=== PATIENT | female | born 1970 | race Caucasian/White ===

== ENCOUNTER 2016-07-10 17:47 | Observation (INO) | payer OTHER ==
[2016-07-10] MEDS ORDERED: LIDOCAINE 2% VISCOUS 15 ML UDCUP PO ONE (18:21)
[2016-07-10] MEDS ORDERED: MAG HYDROX/AL HYDROX/SIMETH 30 ML UDCUP PO ONE (18:21)
[2016-07-10] MEDS ORDERED: NS 500 ML IV ONE (18:21)
[2016-07-10] MEDS ORDERED: HYOSCYAMINE SULFATE 0.125 MG TAB PO ONE (18:21)
[2016-07-10] MEDS ORDERED: ASPIRIN 81 MG CHEWABLE TAB PO ONE (18:21)
--- NOTE | 2016-07-10 18:30 | CPEKG ---
Heart Rate: 63 RR Interval: 952 P-R Interval: 168 QRSD Interval: 78 QT Interval: 408 QTC Interval: 418 P Plato: 37 QRS Plato: 42 T Wave Plato: 42 EKG Severity - NORMAL ECG - EKG Impression: SINUS RHYTHM Electronically Signed By: Alessandra Noriega 10-Jul-2016 22:57:50
--- NOTE | 2016-07-10 18:35 | EDPHY ---
H & P Time Seen by Provider: 07/10/16 18:02 HPI/ROS: CHIEF COMPLAINT: Epigastric pain HISTORY OF PRESENT ILLNESS: Patient is a 46-year-old female with a history of GERD who presents to the emergency department epigastric pain. Pain started around 2:00 p.m.. She felt as though she had "ingestion." She felt a burning sensation. The pain then started to radiate to her back. Her pain was moderate but is now improved. She has no epigastric pain currently but does describe her back in knots. No cough. Pain is mildly worse with deep breath. No fever or chills. No leg pain or swelling. REVIEW OF SYSTEMS: My complete review of systems is negative except as mentioned in the HPI. Past Medical/Surgical History: Includes GERD, hypothyroidism, severe environmental allergies Smoking Status: Never smoked Physical Exam: 36.7, 60, 18, 98% on room air GENERAL: Well-appearing, in no acute distress, alert. HEENT: Eyes normal to inspection, normal pharynx, no signs of dehydration. NECK: No thyromegaly, no lymphadenopathy, supple. RESPIRATORY: Clear to auscultation bilaterally, no rales, rhonchi or wheezing. CVS: Regular rate and rhythm, no rubs, murmurs, or gallops. No chest wall tenderness palpation. ABDOMEN: Soft, epigastric tenderness to palpation with no rebound or guarding, nondistended, no organomegaly. BACK: Normal to inspection, no CVA tenderness. SKIN: Normal color, no rash, warm, dry. No pallor. EXTREMITIES: No pedal edema, no calf tenderness, no Homans sign or cords, no joint swelling. NEURO/PSYCH: Alert and oriented x3, normal mood and affect, normal motor sensory exam. Constitutional: Initial Vital Signs Temperature (C) 36.7 C 07/10/16 17:50 Heart Rate 68 07/10/16 17:50 Respiratory Rate 18 07/10/16 17:50 O2 Sat (%) 98 07/10/16 17:50 O2 Delivery Mode Room Air Allergies/Adverse Reactions: Latex, Natural Rubber Allergy (Verified 07/10/16 17:48) avocado Allergy (Uncoded 05/06/13 20:41) banana Allergy (Uncoded 05/06/13 20:42) celery Allergy (Uncoded 05/06/13 20:41) melon Allergy (Uncoded 05/06/13 20:40) Home Medications: Medication Instructions Recorded Levothyroxine [Synthroid 50 mcg 50 mcg PO DAILY06 05/06/13 (RX)] CIMETIDINE [Tagamet Hb] 200 mg PO 07/10/16 Cetirizine [ZyrTEC 10 mg (*)] 10 mg PO DAILY 07/10/16 Medical Decision Making - Diagnostics Imaging Results: Imaging Impressions Chest X-Ray 07/10/16 18:26 Impression: 1. No pneumothorax or pneumomediastinum. 2. No pneumoperitoneum. 3. Minimal linear scarring or atelectasis in the left lower lobe, without definite pneumonia. Chest/Thorax CTA 07/10/16 19:31 Impression: 1. No definite pulmonary thromboemboli. 2. No aortic aneurysm or dissection. 3. Small hiatal hernia. 4. Cholelithiasis, with possible pericholecystic fluid. 5. Scarring in the lingula, without acute pneumonia, pleural effusion, or pneumothorax. Findings and recommendations discussed with Emergency Department physician, Alessandra Noriega M.D., at 2044 hours, on July 10, 2016. Final report concurs with initial preliminary interpretation. Abdomen Ultrasound 07/10/16 20:41 Impression: 1. Cholelithiasis with circumferential wall thickening consistent with cholecystitis. 2. No biliary ductal dilation or pericholecystic fluid. Findings and recommendations discussed with Emergency Department physician, ALESSANDRA NORIEGA at 21:39 hour, 07/10/2016. Final report concurs with initial preliminary interpretation. ED Course/Re-evaluation: In the emergency department I discussed possible etiologies with the patient. I answered all her questions. IV was placed. Laboratory studies, ekg and CXR were ordered. Patient was given a GI cocktail and aspirin. EKG shows normal sinus rhythm, normal rate, normal axis, normal intervals. There are no ST or T-wave abnormalities. EKG is normal as interpreted by me. Patient's chemistry and CBC were normal. Troponin was negative. D-dimer was elevated at 0.72. Patient states her symptoms felt better after receiving the GI cocktail. She was given Pepcid 20 mg IV. The patient was given Toradol 30 mg IV. I discussed the results with the patient. I answered all of her questions. A CT angiogram was ordered. CT angiogram: Please refer the dictated report by the radiologist. No pulmonary embolus or pulmonary pathology. There is potential fluid around the gallbladder. Dr. Brush recommended we order an ultrasound. I discussed the results with the patient. I answered all her questions. Ultrasound was ordered. I discussed the results with the patient. I answered all her questions. She was given warnings prior to leaving. She will return with worsening symptoms. Ultrasound: Please refer the dictated report by Dr. Kaden Brush. The patient has multiple gallstones and findings consistent with cholecystitis. Common bile duct is 4. I discussed the result with the patient. I answered all her questions. Dr. Luis Mcelroy was paged. 12 10: I discussed the case with Dr. Mcelroy. He will come to department to evaluate the patient. I discussed the plan with the patient. Dr. Mcelroy is in the emergency department evaluating the patient. Patient is deciding if she prefer to be admitted for surgery or follow up with Dr. Mcelroy as an outpatient. Differential Diagnosis: My differential includes but is not limited to GERD, pancreatitis, cholecystitis , cholangitis, ACS, acute [place], pericarditis, myocarditis, dissection, aneurysm, pulmonary embolus - Data Points Laboratory Results: Laboratory Results 07/10/16 18:26 07/10/16 18:26 07/10/16 07/10/16 07/10/16 18:26 18:26 18:26 WBC RBC Hgb Hct MCV MCH MCHC RDW Plt Count MPV Neut % (Auto) Lymph % (Auto) [place] % (Auto) Eos % (Auto) Baso % (Auto) Nucleat RBC Rel Count Absolute Neuts (auto) Absolute Lymphs (auto) Absolute Monos (auto) Absolute Eos (auto) Absolute Basos (auto) Absolute Nucleated RBC Immature Gran % Immature Gran # D-Dimer 0.72 ug/mLFEU H ug/mLFEU (0.00-0.50) Sodium 136 mEq/L mEq/L (134-144) Potassium 4.1 mEq/L mEq/L (3.5-5.2) Chloride 102 mEq/L mEq/L (97-110) Carbon Dioxide 24 mEq/l mEq/l (22-31) Anion Gap 10 mEq/L mEq/L (8-16) BUN 13 mg/dL mg/dL (7-23) Creatinine 0.8 mg/dL mg/dL (0.6-1.0) Estimated GFR > 60 Glucose 107 mg/dL H mg/dL (70-100) Calcium 9.4 mg/dL mg/dL (8.5-10.4) Total Bilirubin 0.4 mg/dL mg/dL (0.1-1.4) Conjugated Bilirubin 0.2 mg/dL mg/dL (0.0-0.5) Unconjugated Bilirubin 0.2 mg/dL mg/dL (0.0-1.1) AST 17 IU/L IU/L (14-46) ALT 28 IU/L IU/L (9-52) Alkaline Phosphatase 46 IU/L IU/L (38-126) Troponin I < 0.012 ng/mL ng/mL (0-0.034) Total Protein 7.4 g/dL g/dL (6.3-8.2) Albumin 4.0 g/dL g/dL (3.5-5.0) Lipase 113.0 IU/L IU/L (23-300) Beta HCG, Qual NEGATIVE 07/10/16 18:26 WBC 8.89 10^3/uL 10^3/uL (3.80-9.50) RBC 4.70 10^6/uL 10^6/uL (4.18-5.33) Hgb 13.7 g/dL g/dL (12.6-16.3) Hct 41.0 % % (38.0-47.0) MCV 87.2 fL fL (81.5-99.8) MCH 29.1 pg pg (27.9-34.1) MCHC 33.4 g/dL g/dL (32.4-36.7) RDW 13.2 % % (11.5-15.2) Plt Count 286 10^3/uL 10^3/uL (150-400) MPV 10.2 fL fL (8.7-11.7) Neut % (Auto) 64.3 % % (39.3-74.2) Lymph % (Auto) 26.8 % % (15.0-45.0) [place] % (Auto) 6.4 % % (4.5-13.0) Eos % (Auto) 1.8 % % (0.6-7.6) Baso % (Auto) 0.4 % % (0.3-1.7) Nucleat RBC Rel Count 0.0 % % (0.0-0.2) Absolute Neuts (auto) 5.71 10^3/uL 10^3/uL (1.70-6.50) Absolute Lymphs (auto) 2.38 10^3/uL 10^3/uL (1.00-3.00) Absolute Monos (auto) 0.57 10^3/uL 10^3/uL (0.30-0.80) Absolute Eos (auto) 0.16 10^3/uL 10^3/uL (0.03-0.40) Absolute Basos (auto) 0.04 10^3/uL 10^3/uL (0.02-0.10) Absolute Nucleated RBC 0.00 10^3/uL 10^3/uL (0-0.01) Immature Gran % 0.3 % % (0.0-1.1) Immature Gran # 0.03 10^3/uL 10^3/uL (0.00-0.10) D-Dimer Sodium Potassium Chloride Carbon Dioxide Anion Gap BUN Creatinine Estimated GFR Glucose Calcium Total Bilirubin Conjugated Bilirubin Unconjugated Bilirubin AST ALT Alkaline Phosphatase Troponin I Total Protein Albumin Lipase Beta HCG, Qual Medications Given: Discontinued Medications Al Hydroxide/Mg Hydroxide (Maalox Susp) 30 ml PO ONCE ONE Stop: 07/10/16 18:22 Last Admin: 07/10/16 18:33 Dose: 30 ml Aspirin (Aspirin) 324 mg PO EDNOW ONE Stop: 07/10/16 18:22 Last Admin: 07/10/16 18:32 Dose: 324 mg Famotidine (Pepcid) 20 mg IVP EDNOW ONE Stop: 07/10/16 19:46 Last Admin: 07/10/16 20:00 Dose: 20 mg Hyoscyamine Sulfate (Levsin, Hyomax-Sl) 0.25 mg PO ONCE ONE Stop: 07/10/16 18:22 Last Admin: 07/10/16 18:33 Dose: 0.25 mg Sodium Chloride (Ns) 500 mls @ 0 mls/hr IV ONCE ONE PRN Reason: As Directed Stop: 07/10/16 18:22 Last Admin: 07/10/16 18:39 Dose: 500 mls Ketorolac Tromethamine (Toradol) 30 mg IVP EDNOW ONE Stop: 07/10/16 19:46 Last Admin: 07/10/16 20:00 Dose: 30 mg Lidocaine (Lidocaine 2% Viscous) 15 ml PO ONCE ONE Stop: 07/10/16 18:22 Last Admin: 07/10/16 18:33 Dose: 15 ml Departure - Departure Disposition: Home, Routine, Self-Care Clinical Impression: Epigastric pain Condition: Good Instructions: Chest Pain (ED), Epigastric Pain (ED) Additional Instructions: Return with increasing pain, fever, vomiting, or any other concerns. Referrals: Rashmi Peña MD [Primary Care Provider] - 1-2 days without fail Luis Mcelroy MD [Medical Doctor] - As per Instructions
[2016-07-10 18:41] LABS: % IMMATURE GRANULYOCYTES 0.3 % (0.0-1.1); ABSOLUTE IMMATURE GRANULOCYTES 0.03 10^3/uL (0.00-0.10); ADD DIFF? NO; ADD MORPH? NO; ADD SCAN? NO; ATYPICAL LYMPHOCYTE FLAG 0 (0-99); FRAGMENT RBC FLAG 0 (0-99); HEMOGLOBIN 13.7 g/dL (12.6-16.3); LEFT SHIFT FLG 0 (0-99); LIPEMIA HEMOLYSIS FLAG 80 (0-99); MEAN CELL HEMOGLOBIN 29.1 pg (27.9-34.1); MEAN CELL HEMOGLOBIN CONCENTR. 33.4 g/dL (32.4-36.7); MEAN CELL VOLUME 87.2 fL (81.5-99.8); MEAN PLATELET VOLUME 10.2 fL (8.7-11.7); PLATELET CLUMPS FLAG 0 (0-99); PLATELET COUNT 286 10^3/uL (150-400); RED CELL DISTRIBUTION WIDTH 13.2 % (11.5-15.2)
[2016-07-10 18:56] LABS: ALANINE AMINOTRANSFERASE 28 IU/L (9-52); ALKALINE PHOSPHATASE 46 IU/L (38-126); ANION GAP 10 mEq/L (8-16); ASPARTATE AMINOTRANSFERASE 17 IU/L (14-46); BILIRUBIN,TOTAL 0.4 mg/dL (0.1-1.4); BILIRUBIN-CONJUGATED 0.2 mg/dL (0.0-0.5); BILIRUBIN-UNCONJUGATED 0.2 mg/dL (0.0-1.1); CALCIUM 9.4 mg/dL (8.5-10.4); CARBON DIOXIDE 24 mEq/l (22-31); CHLORIDE 102 mEq/L (97-110); CREATININE 0.8 mg/dL (0.6-1.0); GLOMERULAR FILTRATION RATE > 60; GLUCOSE 107 mg/dL (70-100); POTASSIUM 4.1 mEq/L (3.5-5.2); SODIUM 136 mEq/L (134-144); TOTAL PROTEIN 7.4 g/dL (6.3-8.2)
[2016-07-10 19:06] LABS: TROPONIN I < 0.012 ng/mL (0-0.034)
[2016-07-10] MEDS ORDERED: IOPAMIDOL (ISOVUE 370) 100 ML BTL IV ONE (19:37)
[2016-07-10] MEDS ORDERED: KETOROLAC 30 MG/1 ML SDV IVP ONE (19:45)
[2016-07-10] MEDS ORDERED: FAMOTIDINE 20 MG/2 ML SDV IVP ONE ×3 (19:45→23:41)
--- NOTE | 2016-07-10 23:17 | PDCONSULT ---
Child And Family Services Worker Note: CC: Abd Pain HPI: 46 y/o female with acute onset epigastric pain presented to Urgent Care and was referred to the ED for evaluation for an elevated d-dimer. A CTA was performed which showed no PE/she was seen to have Ca++ gallstones and an ultrasound confirmed this. She continued to have pain and surgical consultation was requested. She had a vegetarian burrito for lunch. PMH: hypothyroidism, GERD allergies: Latex, multiple fruits/vegetable allergies meds: Synthroid, OCP non-smoker SH: with 2 children/here with neighbor and older daughter ( had lap rohan 3 weeks ago) FH: father with gallstones ROS: + prior abd pain, hx GERD PE: BP 154/88 P 76 T36.7 WDWN female in NAD - icterus/adenopath lungs clear CVS RRR w/out murmurs Abd: soft/tender RUQ with guarding no HSM, mass/small umbilical hernia ext: w/out edema CT/ultrasound reviewed with patient: multiple large stones/normal CBD LFT's wnl Imp: 1. Cholelithiasis with early cholecystitis/cystic duct obstruction and persistant pain/tenderness >8 hours 2. hypothyroid 3. hx GERD 4. Latex allergy Rec: we discussed options including immediate lap rohan vs. delayed surgery. She is comfortable with proceeding and we discussed surgery, expected recovery and risks. Informed consent was obtained. Pre-op prophylactic antibiotics Lee Ann Mcelroy MD, FACS
[2016-07-10] MEDS ORDERED: LR 1,000 ML IV SCH ×2 (23:30→23:45)
[2016-07-10] MEDS ORDERED: ceFAZolin 2 GM/DEXTROSE 100 ML IV ONE (23:31)
[2016-07-11] MEDS ORDERED: BUPIVACAINE 0.25% 30 ML SDV ONE (00:02)
[2016-07-11] MEDS ORDERED: KETOROLAC 30 MG/1 ML SDV ONE (00:04)
[2016-07-11] MEDS ORDERED: ONDANSETRON 4 MG/2 ML VIAL ONE ×2 (00:04→01:38)
[2016-07-11] MEDS ORDERED: DEXAMETHASONE 4 MG/ML VIAL ONE (00:04)
[2016-07-11] MEDS ORDERED: ROCURONIUM 50 MG/5 ML VIAL ONE (00:04)
[2016-07-11] MEDS ORDERED: LIDOCAINE 2% 5 ML SDV ONE (00:05)
[2016-07-11] MEDS ORDERED: fentaNYL 100 MCG/2 ML INJ ONE ×2 (00:08→01:12)
[2016-07-11] MEDS ORDERED: PROPOFOL 200 MG/20 ML VIAL ONE (00:08)
[2016-07-11] MEDS ORDERED: MIDAZOLAM 2 MG/2 ML VIAL ONE (00:08)
[2016-07-11] MEDS ORDERED: hydrALAZINE 20 MG/ML VIAL ONE ×2 (00:43)
[2016-07-11] MEDS ORDERED: SUGAMMADEX SODIUM 200 MG/2 ML VIAL IVP ONE (00:43)
[2016-07-11] MEDS ORDERED: ONDANSETRON 4 MG/2 ML VIAL IVP PRN (01:32)
[2016-07-11] MEDS ORDERED: HYDROCODONE/APAP 5/325 TAB PO PRN (01:38)
[2016-07-11] MEDS ORDERED: PROMETHAZINE HCL 12.5 MG SUPPR PR PRN (01:39)
--- NOTE | 2016-07-11 01:42 | POSTOPPROG ---
Post Op Note Date of Operation: 07/11/16 Surgeon: Luis Mcelroy (, FACS) Linen Room Attendant: Sheila Martinez RN-FA Anesthesiologist: Viral Gustafson MD Anesthesia: GET(General Endotracheal) Pre-op Diagnosis: cholecystitis Post-op Diagnosis: same Procedure: lap cholecystectomy/repair umbilical hernia Findings: chronic cholecystitis with cystic duct obstruction Inf/Abcess present in the surg proc area at time of surgery?: No EBL: Minimal
[2016-07-11] MEDS ORDERED: LR 1,000 ML IV SCH (02:00)
[2016-07-11] MEDS: KETOROLAC 15 MG/1 ML SDV IVP SCH ×2 (05:21→13:17)
--- NOTE | 2016-07-11 06:55 | PDDCSUM ---
Discharge Summary Discharge Summary: DOA 07/11/16 DOD 07/11/16 DC Dx: 1. cholecystitis 2. post op nausea/emesis 3. hypothyroidism 4. GERD Prodedures: lap rohan/repair umbilical hernia Hospital Course: 46 y/o female presented with acute onset epigastric pain. She was found to have cholelithiasis with gallbladder wall thickening and persistant tenderness 8 hours after the onset. She received 2 gm of Ancef/SCD's were placed and she was brought to the OR for lap rohan and underwent repair of an umbilical hernia concurrently. She was found to have acute and chronic cholecystitis. Post op she vomitted in the ED and once more on med-surg. She was advanced in her diet and discharged home and instructed in diet and activity. She will FU in my office in 2 weeks. At time of discharge she was afebrile and her surgical sites appeared uncomplicated. DC Meds: Ravia #30 Senokot- S #30 Zofran 4mg #10 she will resume her other medications as prescribed inclucing Synthroid, Certrizine and OCP S MD Navi, FACS
[2016-07-11 06:57] VITALS: PULSE 59; O2SAT 95
--- NOTE | 2016-07-11 08:33 | GOP ---
[f rep st] OPERATIVE REPORT DATE OF OPERATION: 07/11/2016 SURGEON: Luis Mcelroy MD [employer] SUPERVISOR: ADELINE Kaufman. ANESTHESIA: General endotracheal. ANESTHESIOLOGIST: Viral Gustafson M.D. PREOPERATIVE DIAGNOSIS: Cholecystitis. POSTOPERATIVE DIAGNOSIS: 1. Cholecystitis. 2. Umbilical hernia. PROCEDURE PERFORMED: Laparoscopic cholecystectomy, and repair of umbilical hernia. FINDINGS: 10 to 12 mm umbilical hernia with incarceration of properitoneal fat. Chronic cholecysti tis with acute distention and inflammation, but no evidence of acute infection. Multiple gallstones , with obstruction of the cystic duct at the infundibulum. ESTIMATED BLOOD LOSS: 25 cc. DESCRIPTION OF PROCEDURE: After informed consent was obtained, the patient was brought to the opera ting room and placed under general anesthesia. The abdomen was prepped and draped in the usual [facility] ion. Patient received 2 g of Ancef perioperatively, and latex-free precautions were used due to her allergies. Before proceeding, a time-out identification of the patient was performed. The safe and timely completion of the operation required the help of a qualified recreational assistant, an ADELINE Cline was requested to attend. 0.25% Marcaine was used to infiltrate all incision sites. A supraumbilical incision was made and ca rried through the skin and subcutaneous tissues. Dissection was carried down to the umbilical herni a, which was incarcerated with properitoneal fat. The sac and the contents were dissected down to t he fascial defect, and the sac excised along with its contents and removed from the field. This all owed direct access to the peritoneal cavity, and a 12 mm trocar was introduced through the fascial d efect. A pneumoperitoneum was established with CO2 gas to a pressure of 15 mmHg. A 5 mm, 30-degree scope was introduced, and the peritoneal cavity was visualized. Additional 5 mm ports were placed in the subxiphoid position to the right of the falciform ligament , and in the right upper quadrant midclavicular line, and right anterior axillary line. This allowed introduction of atraumatic grasp ing forceps. The gallbladder was grasped by the fundus and retracted cephalad. The infundibulum wa s grasped and retracted anteriorly and posteriorly. There was a stone impacted in the neck of the g allbladder, with edema in the triangle of Calot. The peritoneum was dissected away from the cystic duct circumferentially using the Harmonic scalpel. The cystic artery was identified and divided wit h the Harmonic scalpel. The cystic duct, having been clearly isolated circumferentially, was doubly hemoclipped and divided, and the gallbladder dissected away from the liver edge with minimal bleedi ng using the Harmonic scalpel. The gallbladder was retrieved through the umbilical port site. The gallbladder was opened and approximately ten 1 to 2 cm stones were removed, to allow removal through the 12 mm hernial defect. After the gallbladder was removed, the subhepatic space was inspected an d hemostasis appeared secure. The pneumoperitoneum was evacuated. The umbilical fascial defect was repaired transversely with interrupted 0 Nurolon sutures. Subcutaneous tissues were approximated w ith 3-0 Monocryl suture, and the skin was closed with 4-0 Monocryl suture in a subcuticular fashion. Mastisol and Steri-Strips were applied. Needle, sponge, and instrument counts were correct. COMPLICATIONS: None. /[id number]/MODL
[2016-07-11] MEDS ORDERED: SENNOSIDES/DOCUSATE SODIUM TAB PO SCH (09:00)
[2016-07-11] MEDS ORDERED: ENOXAPARIN 40 MG/0.4 ML SYR SC SCH (09:00)
[2016-07-11 11:53] VITALS: BP 104/64; RESP 15; TEMP 98.5
== END 2016-07-11 14:30 | disposition home or self-care (01) ==
LOC: FSGY 23:58 → F3N 07-11 00:09
PROVIDERS: ADMIT Surgery; ATTEND Surgery
DX: K80.11 Calculus of gallbladder with chronic cholecystitis with obstruction (principal); K42.9 Umbilical hernia without obstruction or gangrene; K21.9 Gastro-esophageal reflux disease without esophagitis; E03.9 Hypothyroidism, unspecified; K44.9 Diaphragmatic hernia without obstruction or gangrene; Z91.040 Latex allergy status
CPT/HCPCS: 47562; 71020; 71275; 76705; 93005; 96374; 96375; 99285; G0378; J0360; J0690; J1100; J1650; J1885; J2250; J2405; J2704; J3010; Q9967

== ENCOUNTER → 2016-10-25 | Outpatient (CLI) | payer OTHER | LOC: FIMAGING 09:02 | PROVIDERS: ATTEND Obstetrics & Gynecology | DX: Z12.31 Encounter for screening mammogram for malignant neoplasm of breast (principal) | CPT/HCPCS: G0202 ==

== ENCOUNTER 2017-04-07 11:05 | Emergency (ER) | payer OTHER ==
[2017-04-07 11:11] VITALS: BP 114/75; PULSE 78; RESP 16; TEMP 97.9; O2SAT 97
--- NOTE | 2017-04-07 11:41 | EDPHY ---
H & P Stated Complaint: epigastric pain nauea sob loose stool x 1 week Time Seen by Provider: 04/07/17 11:40 - Personal History LMP (Females 10-55): 22-28 Days Ago - Medical/Surgical History Hx Asthma: No Hx Chronic Respiratory Disease: No Hx Diabetes: No Hx Cardiac Disease: No Hx Renal Disease: No Hx Cirrhosis: No Hx Alcoholism: No Hx HIV/AIDS: No Hx Splenectomy or Spleen Trauma: No Other PMH: GERD. HYPOthyroid. severe environmental allergies. C- SECTION - Social History Smoking Status: Never smoked Constitutional: Initial Vital Signs Temperature (C) 36.6 C 04/07/17 11:09 Heart Rate 78 04/07/17 11:09 Respiratory Rate 16 04/07/17 11:09 Blood Pressure 114/75 04/07/17 11:09 O2 Sat (%) 97 04/07/17 11:09 O2 Delivery Mode Room Air Allergies/Adverse Reactions: Latex, Natural Rubber Allergy (Verified 07/10/16 17:48) avocado Allergy (Uncoded 05/06/13 20:41) banana Allergy (Uncoded 05/06/13 20:42) celery Allergy (Uncoded 05/06/13 20:41) melon Allergy (Uncoded 05/06/13 20:40) Home Medications: Medication Instructions Recorded Levothyroxine [Synthroid 50 mcg 50 mcg PO DAILY06 05/06/13 (*)] CIMETIDINE [TAGAMET HB] 200 mg PO BID PRN 07/10/16 Cetirizine [ZyrTEC 10 mg (*)] 10 mg PO DAILY 07/10/16 Cholecalciferol Vit D3 [Vitamin D3 1,000 units PO DAILY 07/11/16 (*)] Herbals/Supplements -Info Only 1 ea PO DAILY 07/11/16 Hydrocodone/APAP 5/325 [[place] 1 tab PO Q4HRS PRN #30 tab 07/11/16 5/325 (*)] Norgestimate-Ethinyl Estradiol 1 each PO DAILY 07/11/16 [Sprintec 28 Day Tablet] Sennosides/Docusate Sodium 1 tab PO BID #30 tab 07/11/16 [Senokot-S] AZITHROMYCIN [Z-PACK] 250 mg PO DAILY #1 packet 04/07/17 Albuterol [Proventil Inhaler] 1 - 2 puffs IH Q4 #1 mdi 04/07/17 Doxycycline Hyclate 100 mg PO BID #20 capsule 04/07/17 predniSONE 40 mg PO DAILY #10 tab 04/07/17 Medical Decision Making ED Course/Re-evaluation: CHIEF COMPLAINT: "I thought I had pneumonia" HISTORY OF PRESENT ILLNESS: The patient is a 46 y/o female arriving at the referral of her PCP's office for evaluation of pleuritic chest pain onset 3 days ago. She had cold symptoms for the last week and has felt "exceptionally gassy" during this time. On Friday she developed pleuritic chest pain and says "my lungs hurt all the time." She's had mild intermittent chills and diaphoresis over the last week that seem to be improving. She denies other symptoms and is normally healthy. No cardiac or respiratory disease history, though she does have significant environmental allergies. She called her PCP to make an appointment today and the nurse on the line told her to come to the ED. REVIEW OF SYSTEMS: A 10 point review of systems was performed and is negative with the exception of the elements mentioned in the history of present illness. PHYSICAL EXAM: HR, BP, O2 Sat, RR. Temp noted General Appearance: Alert, well hydrated, appropriate, and non-toxic appearing. Head: Atraumatic without scalp tenderness or obvious injury Eyes: Pupils equal, round, reactive to light and accommodation, EOMI, no trauma , no injection. Nose: Atraumatic, no rhinorrhea, clear. Throat: Mucus membranes moist. Neck: Supple, nontender, no lymphadenopathy. Respiratory: No retractions, no distress, and no accessory muscle use. Scattered rhonchi and wheezes to auscultation bilaterally. Cardiovascular: Regular rate and rhythm, no murmurs, rubs, or gallops. Good capillary refill all extremities. Gastrointestinal: Abdomen is soft, nontender, non-distended, no masses, no rebound, no guarding, no peritoneal signs. Musculoskeletal: Normal active ROM of all extremities, atraumatic. Neurological: Alert, appropriate, and interactive. The patient has non-focal cranial nerves, motor, sensory, and cerebellar exam. Skin: No rashes, good turgor, no nodules on palpation. Past medical history: GERD, hypothyroidism, environmental allergies Past surgical history: Family history: Noncontributory Social history: Daughter at bedside. DIFFERENTIAL DIAGNOSIS: The differential diagnosis for the patient's symptoms included but was not limited to bronchitis, pneumonia, myocardial infarction, acute mountain sickness, high altitude pulmonary edema, congestive heart failure , and pulmonary embolus. MEDICAL DECISION MAKING: This is a normally healthy 46 y/o female who presents with a 3-day history of cough and pleuritic pain. She has scattered rhonchi and wheezes on auscultation , but no focal decrease or rales that would indicate infiltrate like pneumonia. She is generally quite well-appearing and afebrile; I do not suspect pneumonia or cardiac etiology. Symptoms consistent with bronchitis. Patient will be discharged with scripts for azithromycin, prednisone, albuterol, and standard bronchitis care and follow up instructions. Return precautions discussed. She is comfortable with plan. Patient refused azithromycin. She's been given a script for doxycycline instead. Departure - Departure Disposition: Home, Routine, Self-Care Clinical Impression: Bronchitis Condition: Good Instructions: Albuterol (By breathing), Prednisone (By mouth), Acute Bronchitis (ED) Additional Instructions: 1. Take prednisone as prescribed. 2. Use ibuprofen and Tylenol as directed for pain or fever for the next few days. 3. Use albuterol inhaler as prescribed for cough or shortness of breath. 4. Take azithromycin as prescribed for bronchitis. Be sure to complete the prescription. 5. Follow up with your primary care provider for unimproved symptoms over the next week. 6. Return to the ED for worsening of condition. Adult Pain & Fever Control: We recommend Acetaminophen (Tylenol) and Ibuprofen (Motrin,Advil) for pain and fever control. When fever is high or pain severe, both drugs can be used at the same time, but at different intervals. Please note the time differences. Your dose is: Acetaminophen 650mg every 4 to 6 hours Ibuprofen 600mg every 6-8 hours with food Note: do not take Acetaminophen with Hydrocodone (Vicodin, Lortab) or Oxycodone (Percocet). These medications also contain Acetaminophen. No more than 3000mg of Acetaminophen should be taken in 24 hours (for an adult). Referrals: Rashmi Peña MD [Primary Care Provider] - As per Instructions Prescriptions: Albuterol [Proventil Inhaler] 1 - 2 puffs IH Q4 #1 mdi AZITHROMYCIN [Z-PACK] 250 mg PO DAILY #1 packet Doxycycline Hyclate 100 mg PO BID #20 capsule predniSONE 40 mg PO DAILY #10 tab Report Scribed for: Melquiades Torres Report Scribed by: Rupal Schaeffer Date of Report: 04/07/17 Time of Report: 11:49
== END 2017-04-07 12:00 | disposition home or self-care (01) ==
DX: J20.9 Acute bronchitis, unspecified (principal); Z91.040 Latex allergy status

== ENCOUNTER → 2017-05-20 | Outpatient (CLI) | payer OTHER | LOC: BMCIMAGING 10:08 | PROVIDERS: ATTEND Internal Medicine | DX: J98.09 Other diseases of bronchus, not elsewhere classified (principal) ==

== ENCOUNTER → 2017-12-19 | Outpatient (CLI) | payer OTHER | LOC: FIMAGING 08:23 | PROVIDERS: ATTEND Obstetrics & Gynecology | DX: Z12.31 Encounter for screening mammogram for malignant neoplasm of breast (principal) ==